=== PATIENT | female | born 1990 | race Caucasian/White ===

== ENCOUNTER 2017-09-07 17:32 | Emergency (ER) | payer OTHER ==
[2017-09-07 18:17] VITALS: BP 133/74
--- NOTE | 2017-09-07 19:39 | UC ---
Respiratory Complaint HPI - HPI Summary HPI Summary: Pt presents with 4 days cough, congestion, wheeze. Pt states cough is dry, but feels like "there is stuff" + fevers, chills. no temp documented. No hernandez, vision changes, nasal congestion. No HERNANDEZ, vision changes. Pt has not taken OTC meds. Pt with = sick contacts. Pt does not smoke, but SO smokes. Pt's medications reviewed at this visit - History of Current Complaint Chief Complaint: UCRespiratory Stated Complaint: COUGH Time Seen by Provider: 09/07/17 19:36 Hx Obtained From: Patient Hx Last Menstrual Period: 08/24/17 Severity Initially: Mild Severity Currently: Moderate Pain Intensity: 6 Character: Cough: Nonproductive Associated Signs And Symptoms: Positive: Wheezing, URI - Allergies/Home Medications Allergies/Adverse Reactions: Allergies Allergy/AdvReac Type Severity Reaction Status Date / Time No Known Allergies Allergy Verified 09/07/17 18:17 PMH/Surg Hx/FS Hx/Imm Hx Previously Healthy: Yes - Surgical History Surgical History: Yes Surgery Procedure, Year, and Place: D&C, tubal ligation - Social History Occupation: Employed Full-time Lives: With Family Alcohol Use: None Substance Use Type: None Smoking Status (MU): Never Smoked Tobacco - passive exposure - Immunization History Most Recent Influenza Vaccination: no Review of Systems Constitutional: Fever, Chills, Fatigue Skin: Negative Respiratory: Shortness Of Breath, Cough, Other - wheeze Cardiovascular: Negative Gastrointestinal: Negative Genitourinary: Negative Motor: Negative Neurovascular: Negative Musculoskeletal: Negative All Other Systems Reviewed And Are Negative: Yes Physical Exam Triage Information Reviewed: Yes Appearance: Well-Appearing, No Pain Distress, Well-Nourished Vital Signs: Initial Vital Signs Temp 98.5 F 09/07/17 18:13 Pulse 81 09/07/17 18:13 Resp 16 09/07/17 18:13 BP 133/74 09/07/17 18:13 Pulse Ox 100 09/07/17 18:13 Vital Signs Reviewed: Yes Eye Exam: Normal Eyes: Positive: Conjunctiva Clear ENT Exam: Normal ENT: Positive: Hearing grossly normal, Pharynx normal, Pharyngeal erythema, Nasal congestion, TMs normal Neck exam: Normal Neck: Positive: Supple, Nontender, No Lymphadenopathy Respiratory: Positive: No respiratory distress, No accessory muscle use, Wheezing, Other: - Pt with wheezing L>R +BS throughout no retraction No accessory muscle use Cardiovascular Exam: Normal Cardiovascular: Positive: RRR, No Murmur, Pulses Normal Musculoskeletal Exam: Normal Neurological Exam: Normal Psychological Exam: Normal Skin Exam: Normal UC Diagnostic Evaluation - Laboratory O2 Sat by Pulse Oximetry: 100 - Radiology Radiology Interpretation Completed By: Radiologist - ALFREDA Respiratory Course/Dx - Course Course Of Treatment: Pt present with fatigue, nonproductive cough, wheeze L>R. Recommend CXR given asymmetry. recommend neb - pt declined - states wait "too long". Agree to CXR. anticipate discharge with CHIDI john. secretion precautions. return precautions. Pt comfortable and in agreement with plan - Differential Dx/Diagnosis Provider Diagnoses: bronchitis Discharge - Discharge Plan Condition: Stable Disposition: HOME Prescriptions: Albuterol HFA INHALER* [Ventolin HFA Inhaler*] 1 puff INH Q4H PRN #1 mdi PRN Reason: wheeze Azithromycin TAB* [Zithromax TAB (Z-CLAUDIA) 250 mg #6 tabs] 2 tab PO .TODAY, THEN 1 DAILY #1 claudia Patient Education Materials: Acute Bronchitis (ED) Referrals: Kate Hawthorne MD [Primary Care Provider] - Additional Instructions: - Take antibiotics exactly as prescribed until gone. -Use your albuterol puffer - 2 puffs ever 4-6 hours for the next 3 days - then as needed -Stay well hydrated - avoid excess caffeine and all alcohol - These infections are spread by oral secretions - do not share eating or drinking utensils until you symptoms are resolved. Clean items that may get your secretions such as cell phones, ipads, computer mouse, television remote. Once you have been on antbiotics for 2 days, change your pillowcase and your toothbrush - eat regular, healthy meals -Contact your doctor to arrange a follow-up appointment this week. Call your doctor, return here or go to the emergency department with any questions or concerns
--- NOTE | 2017-09-07 20:13 | RAD ---
INDICATION: Chills. Fatigue. Cough, LEFT greater than RIGHT wheezing. Tobacco exposure. COMPARISON: No relevant prior exams available on the [facility] for comparison. TECHNIQUE: Dual energy PA and routine lateral views of the chest were obtained. REPORT: Clear lungs and pleural spaces. Negative for pneumothorax. The heart, pulmonary vasculature, and mediastinal contours are unremarkable. Unremarkable osseous structures and soft tissue contours. IMPRESSION: No evidence for pneumonia. Negative exam.
== END 2017-09-07 20:13 | disposition home or self-care (01) ==
LOC: UCCORT 17:32
DX: J40 Bronchitis, not specified as acute or chronic (principal)
CPT/HCPCS: 71020; 99212; G0463

== ENCOUNTER 2019-07-14 09:42 | Emergency (ER) | payer OTHER ==
[2019-07-14 10:22] VITALS: BP 119/72
--- NOTE | 2019-07-14 10:28 | UC ---
Respiratory Complaint HPI - HPI Summary HPI Summary: 29 y/o F with body aches and fever of 101 F about 2 days ago . Patient has tried [id number] medication with minimal relief. Exertion worsens her symptoms are gone. Rest slowly improved her symptoms. She states she is also having a nonproductive cough as well as a headache. She is unaware of any sick contacts area and she has had this work due to this. - History of Current Complaint Chief Complaint: UCRespiratory Stated Complaint: BODY ACHES,FEVER,COUGH,TIRED Time Seen by Provider: 07/14/19 10:27 Hx Obtained From: Patient Hx Last Menstrual Period: 06/28/19 Pain Intensity: 0 - Allergies/Home Medications Allergies/Adverse Reactions: Allergies Allergy/AdvReac Type Severity Reaction Status Date / Time No Known Allergies Allergy Verified 07/14/19 10:16 Home Medications: Home Medications D-Methorphan/PE/Acetaminophen [Gnp Day Time Cold/Flu Rel] 1 liq PO ONCE PRN [History Confirmed 07/14/19] PMH/Surg Hx/FS Hx/Imm Hx Previously Healthy: Yes - Surgical History Surgical History: Yes Surgery Procedure, Year, and Place: D&C, tubal ligation - Family History Known Family History: Positive: None - Social History Occupation: Employed Full-time Lives: With Family Alcohol Use: Occasionally Substance Use Type: None Smoking Status (MU): Never Smoked Tobacco - Immunization History Most Recent Influenza Vaccination: no Review of Systems All Other Systems Reviewed And Are Negative: Yes Constitutional: Positive: Fever, Chills, Fatigue Respiratory: Positive: Cough Musculoskeletal: Positive: Myalgia Physical Exam Triage Information Reviewed: Yes Appearance: Well-Appearing, No Pain Distress, Well-Nourished Vital Signs: Initial Vital Signs Temp 99.3 F 07/14/19 10:18 Pulse 104 07/14/19 10:18 Resp 18 07/14/19 10:18 BP 119/72 07/14/19 10:18 Pulse Ox 97 07/14/19 10:18 Eye Exam: Normal ENT Exam: Normal Dental Exam: Normal Neck exam: Normal Neck: Positive: 1 Respiratory Exam: Normal Cardiovascular Exam: Normal Musculoskeletal Exam: Normal Neurological Exam: Normal Psychological Exam: Normal Skin Exam: Normal Respiratory Course/Dx - Course Course Of Treatment: Appears viral in nature at this time. Advised rest and fluids. Med for cough suppressant. Note for work given. If symptoms persist or worsen return for further evaluation or go to emergency room. - Differential Dx/Diagnosis Differential Diagnosis/HQI/PQRI: Bronchitis, Influenza, Lower Resp Infection, Sinusitis Provider Diagnosis: Viral respiratory illness Discharge - Sign-Out/Discharge Documenting (check all that apply): Patient Departure All imaging exams completed and their final reports reviewed: No Studies - Discharge Plan Condition: Good Disposition: HOME Prescriptions: Benzonatate CAP* [Tessalon 100 MG CAP*] 100 mg PO TID PRN #20 cap PRN Reason: Cough Patient Education Materials: Viral Syndrome (ED) Forms: *Work Release Referrals: Kate Hawthorne MD [Primary Care Provider] - 4 Days - Billing Disposition and Condition Condition: GOOD Disposition: Home
== END 2019-07-14 10:44 | disposition home or self-care (01) ==
LOC: UCCORT 09:42
DX: B34.9 Viral infection, unspecified (principal); J99 Respiratory disorders in diseases classified elsewhere
CPT/HCPCS: 99212; G0463

== ENCOUNTER 2019-12-12 08:44 | Emergency (ER) | payer MEDICAID, OTHER ==
[2019-12-12 09:03] VITALS: BP 128/76
[2019-12-12 10:05] LABS: Influenza A Molecular NEGATIVE (Negative); Influenza B Molecular NEGATIVE (Negative)
--- NOTE | 2019-12-12 10:18 | UC ---
Respiratory Complaint HPI - HPI Summary HPI Summary: 1. cough x 4 days , cough is productive with yellow sputum fever, chills, body aches , 2. dysuria x 3 weeks, + frequency , dark and smelly urine no fever, no chills, - History of Current Complaint Chief Complaint: UCGeneralIllness Stated Complaint: FLU LIKE SYMPTOMS,URINARY COMP Time Seen by Provider: 12/12/19 09:29 Hx Obtained From: Patient Hx Last Menstrual Period: 11/13/19 ?: No Onset/Duration: Gradual Onset, Lasting Days - 4, Still Present Timing: Constant Severity Initially: Moderate Severity Currently: Moderate Pain Intensity: 6 Character: Cough: Productive Aggravating Factors: Exertion, Deep Breaths Alleviating Factors: Nothing Associated Signs And Symptoms: Positive: Fever, Chills, URI, Nasal Congestion. Negative: Wheezing, Dizziness, Calf Swelling - Allergies/Home Medications Allergies/Adverse Reactions: Allergies Allergy/AdvReac Type Severity Reaction Status Date / Time No Known Allergies Allergy Verified 12/12/19 08:57 Home Medications: Home Medications Diphenhydra/Phenyleph/Acetamin [Cold & Flu Relief Multi-Sym Lq] 1 dose PO ONCE 12/12/19 [History Confirmed 12/12/19] PMH/Surg Hx/FS Hx/Imm Hx - Additional Past Medical History Additional PMH: hx of Hep C , had treatment - Surgical History Surgical History: Yes Surgery Procedure, Year, and Place: D&C, tubal ligation - Family History Known Family History: Positive: None Negative: Diabetes - Social History Alcohol Use: Occasionally Substance Use Type: None Smoking Status (MU): Never Smoked Tobacco - Immunization History Most Recent Influenza Vaccination: no Review of Systems All Other Systems Reviewed And Are Negative: Yes Constitutional: Positive: Fever, Chills, Fatigue Skin: Positive: Negative Eyes: Positive: Negative ENT: Positive: Nasal Discharge Respiratory: Positive: Cough Cardiovascular: Positive: Negative Genitourinary: Positive: Dysuria, Frequency Is Patient Immunocompromised?: No Physical Exam Triage Information Reviewed: Yes Appearance: Well-Appearing, No Pain Distress, Well-Nourished Vital Signs: Initial Vital Signs Temp 99.1 F 12/12/19 08:58 Pulse 107 12/12/19 08:58 Resp 17 12/12/19 08:58 BP 128/76 12/12/19 08:58 Pulse Ox 98 12/12/19 08:58 Vital Signs Reviewed: Yes Eye Exam: Normal Eyes: Positive: Conjunctiva Clear ENT: Positive: Normal ENT inspection, Hearing grossly normal, Pharynx normal Neck: Positive: Supple, Nontender, No Lymphadenopathy Respiratory: Positive: Chest non-tender, Lungs clear, Normal breath sounds Cardiovascular: Positive: No Murmur, Tachycardia Abdominal Exam: Normal Abdomen Description: Positive: Nontender, Soft Bowel Sounds: Positive: Present Skin Exam: Normal Respiratory Course/Dx - Differential Dx/Diagnosis Provider Diagnosis: URI (upper respiratory infection), Dysuria Discharge ED - Sign-Out/Discharge Documenting (check all that apply): Patient Departure All imaging exams completed and their final reports reviewed: No Studies - Discharge Plan Condition: Stable Disposition: HOME Prescriptions: Nitrofurantoin Monohyd/M-Cryst [Macrobid 100 mg Capsule] 100 mg PO BID #14 cap Patient Education Materials: Upper Respiratory Infection (ED), Dysuria (ED) Referrals: Kate Hawthorne MD [Primary Care Provider] - Additional Instructions: will start treatment for possible UTI , will send the urine for culture will also do CBC and CMP since UA showed Biliruben / Urobiligen / Blood , please call the office in 1 day for the lab results - Billing Disposition and Condition Condition: STABLE Disposition: Home
[2019-12-12 14:16] LABS: ABS Basophils 0.1 10^3/ul (0-0.2); ABS Lymphocytes 1.7 10^3/ul (1.0-4.8); ABS Monocytes 1.4 10^3/ul (0-0.8); ABS Neutrophils 7.5 10^3/ul (1.5-7.7); Eosinophil % 0.2 %; Hematocrit 37 % (35-47); Hemoglobin 12.9 g/dL (12.0-16.0); Lymphocyte % 15.9 %; Mean Corpuscular HGB Conc 35 g/dL (31-36); Mean Corpuscular Hemoglobin 31 pg (27-31); Mean Corpuscular Volume 88 fL (80-97); Mean Platelet Volume 9.9 fL (7.4-10.4); Platelet Count 277 10^3/uL (150-450); Red Blood Count 4.17 10^6 /uL (3.70-4.87); Red Cell Distribution Width 13 % (10-15); White Blood Count 10.7 10^3/uL (3.5-10.8)
[2019-12-12 14:38] LABS: Albumin 4.3 g/dL (3.2-5.2); Albumin/Globulin Ratio 1.5 (1-3); BUN/Creatinine Ratio 9.6 (8-20); Calcium 8.8 mg/dL (8.6-10.3); EGFR African American 84.6 (>60); EGFR Non-African American 69.9 (>60); Globulin 2.9 g/dL (2-4); Potassium 3.8 mmol/L (3.5-5.0); Total Bilirubin 1.4 mg/dL (0.2-1.0); Total Protein 7.2 g/dL (6.4-8.9)
--- NOTE | 2019-12-13 07:13 | UC ---
- Progress Note Progress Note: cbc with dif cmp reviewed, no concerning- no change ljj Course/Dx - Diagnoses Provider Diagnoses: URI (upper respiratory infection), Dysuria Discharge ED - Sign-Out/Discharge Documenting (check all that apply): Post-Discharge Follow Up All imaging exams completed and their final reports reviewed: No Studies - Discharge Plan Condition: Stable Disposition: HOME Prescriptions: Nitrofurantoin Monohyd/M-Cryst [Macrobid 100 mg Capsule] 100 mg PO BID #14 cap Patient Education Materials: Upper Respiratory Infection (ED), Dysuria (ED) Referrals: Kate Hawthorne MD [Primary Care Provider] - Additional Instructions: will start treatment for possible UTI , will send the urine for culture will also do CBC and CMP since UA showed Biliruben / Urobiligen / Blood , please call the office in 1 day for the lab results - Billing Disposition and Condition Condition: STABLE Disposition: Home
== END 2019-12-12 10:31 | disposition home or self-care (01) ==
LOC: UCCORT 08:44
DX: J06.9 Acute upper respiratory infection, unspecified (principal); R30.0 Dysuria; R35.0 Frequency of micturition
CPT/HCPCS: 36415; 80053; 81003; 85025; 99212; G0463